=== PATIENT | male | born 1970 | race African-American/Black ===

== ENCOUNTER 2019-04-26 11:25 | Day surgery (SDC) | payer OTHER ==
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
[~2019-04-26 11:25] MED LIST: Buffered Lidocaine 1% SYRIN* 1 ML/SYRINGE INTRADERM ONE; Dexamethasone IV* 4 MG/ML 1 ML (4 MG) IV SLOW PU ONE; Famotidine IV* 10 MG/ML 2 ML (20 mg) IV ONE; Lactated Ringers 1000 ML Bag* 1,000 ML IV SCH
[2019-04-26] MEDS ORDERED: Dexamethasone IV* 4 MG/ML 1 ML (4 MG) ONE (11:30)
[2019-04-26] MEDS ORDERED: ceFAZolin 2 GM PREMIX in ORs 2 GM/50 ML BAG ONE (11:30)
[2019-04-26] MEDS ORDERED: Famotidine IV* 10 MG/ML 2 ML (20 mg) ONE (11:31)
[2019-04-26] MEDS ORDERED: Naloxone* 0.4 MG/ML 1 ML VIAL IV PRN (11:39)
[2019-04-26] MEDS ORDERED: HYDROcodone/ACETAMIN 5-325 MG* 1 TAB PO PRN (11:39)
[2019-04-26] MEDS ORDERED: fentaNYL* 50 MCG/ML 2 ML VIAL (100 MCG VIAL) IV PRN (11:39)
[2019-04-26] MEDS ORDERED: oxyCODONE/Acetamin 5/325 MG* TAB PO PRN (11:39)
[2019-04-26] MEDS ORDERED: DiMENhydriNATE IV* 50 MG/ML VIAL IV PUSH PRN (11:39)
[2019-04-26] MEDS ORDERED: Propofol* 10 MG/ML 20 ML BTL ONE (11:57)
[2019-04-26] MEDS ORDERED: Lidocaine 2% PF * 5 ML VIAL ONE (11:57)
[2019-04-26] MEDS ORDERED: Midazolam* 1 MG/ML 2 ML VIAL (2 MG) ONE (11:57)
[2019-04-26] MEDS ORDERED: fentaNYL* 50 MCG/ML 2 ML VIAL (100 MCG VIAL) ONE (11:57)
[2019-04-26] MEDS ORDERED: ROPIVACAINE 5 MG/ML 30 ML BTL (0.5%) ONE (12:25)
[2019-04-26] MEDS ORDERED: Ketorolac INJ* 30 MG/ML 1 ML VIAL ONE (12:57)
[2019-04-26] MEDS ORDERED: Phenylephrine 40 MCG/ML SYRINGE ONE (12:57)
[2019-04-26] MEDS ORDERED: Bupivacaine 0.5% SDV PF* 30ML VIAL ONE (13:13)
[2019-04-26] MEDS ORDERED: EPHEDrine (Pressors)* 50 MG/ML VIAL ONE (13:24)
[2019-04-26] MEDS ORDERED: Ondansetron INJ* 2 MG/ML VIAL ONE (13:53)
[2019-04-26 15:57] VITALS: BP 104/72
--- NOTE | 2019-04-27 00:20 | OP ---
DATE OF OPERATION: 04/26/19 - [facility] DATE OF : 72 SURGEON: Joie Lopez MD (Roach) CLINICAL STAFF PHARMACIST: ALAN Wells ANESTHESIA: Block plus general. PRE-OP DIAGNOSES: Scapholunate ligament tear and triangular fibrocartilage complex tear of the right wrist. POST-OP DIAGNOSIS: Scapholunate ligament tear and triangular fibrocartilage complex tear of the right wrist. OPERATIVE PROCEDURE: Right wrist arthroscopy, TFCC debridement, and proximal row carpectomy. INDICATIONS: Herber is a 48-year-old male, who suffered an injury of his right wrist about 3 months ago. Initially, this was treated conservatively but recent MRI showed the scapholunate ligament to be torn as well as the TFCC. The patient has an ulnar positive variance and continues to have wrist pain. I have discussed with him the option of wrist arthroscopy, scapholunate ligament repair, ulnar shortening osteotomy, or salvage procedure of proximal row carpectomy. The patient has opted for the salvage procedure to minimize his healing time. Arthroscopy finding showed completely torn and not repairable scapholunate ligament tear, also a TFCC tear, which appeared older than 3 months. There was also some tearing of the lunotriquetral ligament. ESTIMATED BLOOD LOSS: Zero. TOURNIQUET TIME: About 75 minutes. DESCRIPTION OF PROCEDURE: The patient was brought to the operating room and was given a block and general anesthetic and was placed in supine position on the operating table with tourniquet around his right upper arm. Skin of his right upper extremity was prepped and draped in the usual sterile fashion. The upper extremity was exsanguinated and tourniquet elevated to 250 mmHg. The radiocarpal joint was filled with 10 cc of saline and then a stab incision was made distal to Cecilia's tubercle. The arthroscope was placed in the joint and we were able to see that the scapholunate ligament was completely torn. I was able to pass the arthroscope into the mid carpal joint very easily and the ligamentous tissue did not appear repairable. Additionally, there was a central perforation of the TFCC with well-rounded edges, which appeared to be an old TFCC tear. There was some surrounding tenosynovitis. A second portal was created and synovitis was debrided with a 2.0 Gator shaver. The arthroscopy instruments were then removed and the radial incision was extended proximally and distally. We dissected sharply down to the extensor retinaculum. The third extensor compartment was incised and the EPL tendon was retracted radially. The wrist joint capsule was incised longitudinally and subperiosteally dissected off the proximal row carpal bones, which were then removed in piecemeal fashion. The articulate surface of the capitate was in excellent condition as was the articular surface of the lunate fossa. The capitate articulated very nicely with the lunate fossa of the radius. The wound was copiously irrigated with saline. The wrist capsule was reapproximated with 2-0 Vicryl suture. The skin edges were then reapproximated with 4-0 nylon suture. The wound was dressed with Xeroform, 4x4, Webril, and a volar splint. The patient tolerated the procedure well and was brought to the recovery room in good condition. [id number]/[facility] #: [id number] LISA
== END 2019-04-26 15:55 | disposition home or self-care (01) ==
LOC: OREAST 11:25
PROVIDERS: ATTEND Orthopaedic Surgery
DX: S63.511A Sprain of carpal joint of right wrist, initial encounter (principal); S63.591A Other specified sprain of right wrist, initial encounter; V18.0XXA Pedal cycle driver injured in noncollision transport accident in nontraffic accident, initial encounter; Y93.55 Activity, bike riding; Y92.9 Unspecified place or not applicable; Z87.891 Personal history of nicotine dependence; G89.18 Other acute postprocedural pain
CPT/HCPCS: 88304; 88311; J0690; J1100; J1885; J2250; J2405; J2704; J2795; J3010; J3490